=== PATIENT | male | born 1995 | race Caucasian/White ===

== ENCOUNTER 2018-12-15 22:50 | Emergency (ER) | payer BC ==
--- NOTE | 2018-12-15 23:01 | EDPHY ---
H & P Stated Complaint: Sunburn Time Seen by Provider: 12/15/18 23:01 HPI/ROS: HPI CHIEF COMPLAINT: Sunburn to back. HISTORY OF PRESENT ILLNESS: Patient is otherwise healthy 23-year-old male, presents to the emergency room with a sunburn to his back. Patient was in [facility] today video taping some outdoor activity, he got hot took his shirt off. He was in direct sunlight for multiple hours and sustained a sunburn to his back. He arrives to the emergency room complaining of diffuse back pain, chills, shaking. Past Medical History: Denies medical history Past Surgical History: Denies surgical history Social History: Denies drugs alcohol tobacco. Family History: Noncontributory ROS REVIEW OF SYSTEMS: 10 Systems were reviewed and negative with the exception of the elements mentioned in the history of present illness. Exam Constitutional triage nursing summary reviewed, vital signs reviewed, awake/ alert. Eyes normal conjunctivae and sclera, EOMI, PERRLA. HENT normal inspection, atraumatic, moist mucus membranes, no epistaxis, neck supple/ no meningismus, no raccoon eyes. Respiratory clear to auscultation bilaterally, normal breath sounds, no respiratory distress, no wheezing. Cardiovascular rate normal, regular rhythm, no murmur, no edema, distal pulses normal. Gastrointestinal soft, non-tender, no rebound, no guarding, normal bowel sounds, no distension, no pulsatile mass. Genitourinary no CVA tenderness. Musculoskeletal no midline vertebral tenderness, full range of motion, no calf swelling, no tenderness of extremities, no meningismus, good pulses, neurovascularly intact. Skin sunburn to back. Aloe vera rubbed all over his back, I do not appreciate significant blisters. Neurologic awake, alert and oriented x 3, AAOx3, moves all 4 extremities equally, motor intact, sensory intact, CN II-XII intact, normal cerebellar, normal vision, normal speech. Psychiatric normal mood/affect. Heme/Lymph/Immune no lymphadenopathy. Differential Diagnosis: Includes but is not limited to in a particular order sunburn, 1st degree burn, second-degree burn partial-thickness. Medical Decision Making: Plan for this patient IV establishment IV fentanyl for pain control, IV fluids, basic labs Re-evaluation: 0124: Patient re-evaluated this time resting comfortably feeling much better after IV fluids 2 L, IV fentanyl 100 mcg, IV Toradol, IV Ativan for anxiety. Patient much improved. Patient feeling much better. He would like to be discharged. Recommend staying well hydrated. Recommend drinking lots of fluids alternating tylenol/motrin. Discussed return precautions, including fever, vomiting, not doing well. Source: Patient - Personal History Current Tetanus Diphtheria and Acellular Pertussis (TDAP): Yes - Medical/Surgical History Hx Asthma: No Hx Chronic Respiratory Disease: No Hx Diabetes: No Hx Cardiac Disease: No Hx Renal Disease: No Hx Cirrhosis: No Hx Alcoholism: No Hx HIV/AIDS: No Hx Splenectomy or Spleen Trauma: No Other PMH: seizure-TBI - Social History Smoking Status: Current every day smoker Constitutional: Initial Vital Signs Temperature (C) 37.1 C 12/15/18 22:52 Heart Rate 125 H 12/15/18 22:52 Respiratory Rate 22 H 12/15/18 22:52 Blood Pressure 152/106 H 12/15/18 22:52 O2 Sat (%) 98 12/15/18 22:52 O2 Delivery Mode Room Air Allergies/Adverse Reactions: No Known Allergies Allergy (Unverified 12/15/18 22:51) Home Medications: Medication Instructions Recorded Advil 12/15/18 Medical Decision Making - Data Points Laboratory Results: Laboratory Results 12/15/18 23:10 12/15/18 23:10 Medications Given: Discontinued Medications Fentanyl (Sublimaze) 100 mcg IVP EDNOW ONE Stop: 12/15/18 23:06 Last Admin: 12/15/18 23:20 Dose: 100 mcg Sodium Chloride (Ns) 1,000 mls @ 0 mls/hr IV EDNOW ONE; Wide Open PRN Reason: Protocol Stop: 12/15/18 23:05 Last Admin: 12/15/18 23:14 Dose: 1,000 mls Sodium Chloride (Ns) 1,000 mls @ 0 mls/hr IV EDNOW ONE; Wide Open PRN Reason: Protocol Stop: 12/15/18 23:05 Last Admin: 12/15/18 23:15 Dose: 1,000 mls Ketorolac Tromethamine (Toradol) 15 mg IVP EDNOW ONE Stop: 12/15/18 23:51 Last Admin: 12/15/18 23:53 Dose: 15 mg Lorazepam (Ativan Injection) 1 mg IVP EDNOW ONE Stop: 12/16/18 00:12 Last Admin: 12/16/18 00:16 Dose: 1 mg Ondansetron HCl (Zofran) 4 mg IVP EDNOW ONE Stop: 12/15/18 23:06 Last Admin: 12/16/18 00:07 Dose: Not Given Departure - Departure Disposition: Home, Routine, Self-Care Clinical Impression: Burn from the sun Condition: Good Instructions: Sunburn (ED) Additional Instructions: 1. Drink lots of fluids. 2. rest 3. stay well hydrated 4. return to er if worse. 5. Recommend cool compresses. Referrals: NONE *PRIMARY CARE P,. [Primary Care Provider] - As per Instructions [facility],. [Clinic] - As per Instructions
[2018-12-15] MEDS ORDERED: NS 1,000 ML IV ONE ×2 (23:04)
[2018-12-15] MEDS ORDERED: fentaNYL 100 MCG/2 ML INJ IVP ONE (23:05)
[2018-12-15] MEDS ORDERED: ONDANSETRON 4 MG/2 ML VIAL IVP ONE (23:05)
[2018-12-15] MEDS ORDERED: KETOROLAC 15 MG/1 ML SDV IVP ONE (23:50)
[2018-12-15 23:51] LABS: PLATELET COUNT 335 10^3/uL (150-400)
[2018-12-16] MEDS ORDERED: LORazepam 2 MG/ML INJ IVP ONE (00:11)
[2018-12-16 03:30] VITALS: BP 116/65
== END 2018-12-16 03:50 | disposition home or self-care (01) ==
DX: L55.9 Sunburn, unspecified (principal); E86.9 Volume depletion, unspecified
CPT/HCPCS: 96374; J1885; J2060; J3010